=== PATIENT | male | born 1960 | race Caucasian/White ===

== ENCOUNTER 2017-04-16 19:02 | Inpatient (IN) | payer BC, OTHER ==
[~2017-04-16] VITALS: Ht 171.4 cm; Wt 80.3 kg
[2017-04-16] MEDS ORDERED: SODIUM CHLORIDE 0.9% 1000ML 1,000 ML IV STA ×3 (19:25→22:22)
[2017-04-16 19:41] LABS: HEMATOCRIT 45.4 % (42-52); HEMOGLOBIN 16.6 g/dL (14.0-18.0); MEAN CELL VOLUME 88.7 fL (80-100); MEAN CORPUSCULAR HEMOGLOBIN 32.4 pg (25-34); MEAN CORPUSCULAR HGB CONC 36.6 g/dl (32-36); MEAN PLATELET VOLUME 10.7 fL (7.4-10.4); PLATELET COUNT 127 K/uL (130-400); RED CELL DISTRIBUTION WIDTH CV 12.3 % (11.5-14.5); RED CELL DISTRIBUTION WIDTH SD 39.3 fL (36.4-46.3); WHITE BLOOD COUNT 5.94 K/uL (4.8-10.8)
[2017-04-16] MEDS ORDERED: WLLXL300 PO (19:53)
[2017-04-16] MEDS ORDERED: LEVO200T6 PO (19:53)
--- NOTE | 2017-04-16 19:55 | DIAGNOSTIC IMAGING REPORT ---
CHEST ONE VIEW PORTABLE HISTORY: 56 years-old Male hypotensive acute hypotension COMPARISON: None available TECHNIQUE: Portable AP view of the chest FINDINGS: Cardiomediastinal and hilar silhouettes are within normal limits. No pneumothorax, pleural effusion, focal airspace consolidation or overt pulmonary edema. Bones of the chest appear grossly intact. Degenerative changes of the spine and shoulders. IMPRESSION: No acute process. The above report was generated using voice recognition software. It may contain grammatical, syntax or spelling errors. Electronically signed by: Pedro Manriquez M.D. 04/16/2017 7:53 PM Dictated Date/Time: 04/16/2017 7:52 PM
[2017-04-16 20:04] LABS: BLOOD UREA NITROGEN 27 mg/dl (7-18); CREATININE 1.49 mg/dl (0.60-1.40); GLUCOSE 141 mg/dl (70-99)
[2017-04-16 20:05] LABS: ALBUMIN 3.3 gm/dl (3.4-5.0); ALT/SGPT 17 U/L (12-78); AST/SGOT 7 U/L (15-37); CALCIUM 8.6 mg/dl (8.5-10.1); CARBON DIOXIDE 25 mmol/L (21-32); POTASSIUM 4.2 mmol/L (3.5-5.1); SODIUM 130 mmol/L (136-145)
[2017-04-16 20:10] LABS: ALKALINE PHOSPHATASE 46 U/L (45-117); CKMB < 0.5 ng/ml (0.5-3.6)
[2017-04-16 20:21] LABS: BASO % 0.2 %; BASO ABS # 0.01 K/uL (0-0.2); IG# 0.02 K/uL (0.00-0.02); LYMPH % 4.7 %; LYMPH ABS # 0.28 K/uL (1.2-3.4); MONO % 5.7 %; MONO ABS # 0.34 K/uL (0.11-0.59); NEUT % 89.1 %; NEUT ABS # 5.29 K/uL (1.4-6.5)
[2017-04-16 20:33] LABS: INFLUENZA B ANTIGEN Neg for Influ B (NEG)
[2017-04-16] MEDS ORDERED: SODIUM CHLORIDE 0.9% IV STA (21:17)
[2017-04-16] MEDS ORDERED: PIPERACILLIN/TAZOBACTAM 4.5 GM/100ML D5W IV STA (21:17)
[2017-04-16] MEDS ORDERED: VANCOMYCIN IV STA (21:17)
[2017-04-16] MEDS ORDERED: VANCOMYCIN CONSULT ACTIVE PRN (21:30)
[2017-04-16] MEDS ORDERED: DOXYCYCLINE IV 100 MG in DEXTROSE 5% 100ML 100 ML IV ONE (22:20)
[2017-04-16 22:58] LABS: PTT PATIENT 27.3 SECONDS (21.0-31.0)
[2017-04-16 23:13] LABS: CALCIUM 7.8 mg/dl (8.5-10.1); CREATININE 1.26 mg/dl (0.60-1.40); POTASSIUM 4.4 mmol/L (3.5-5.1)
[2017-04-16] MEDS ORDERED: LEVALBUTEROL/IPRATROPIUM NEB INH STA (23:13)
[2017-04-16] MEDS ORDERED: ACETAMINOPHEN 325 MG TAB PO PRN (23:15)
[2017-04-16] MEDS ORDERED: TRAMADOL HCL 50 MG TAB PO PRN (23:15)
[2017-04-16] MEDS ORDERED: PROCHLORPERAZINE INJ 5 MG in SYRINGE 4 ML IV PRN (23:15)
[2017-04-16] MEDS ORDERED: LORAZEPAM 2 MG/ML 1 ML VIAL IV PRN (23:15)
[2017-04-16] MEDS ORDERED: HYDROmorphone INJ 0.5 MG/0.5 ML SYR IV PRN (23:15)
[2017-04-16] MEDS ORDERED: NITROGLYCERIN 0.4 MG SL PER TAB CHARGE SL PRN (23:15)
[2017-04-16] MEDS ORDERED: LEVALBUTEROL/IPRATROPIUM NEB INH PRN (23:15)
[2017-04-16 23:30] VITALS: BP 93/55; PULSE 110; TEMP 37.1; O2SAT 95; Ht 171.4 cm; Wt 80.3 kg
[2017-04-16] MEDS ORDERED: MoRPHine SULFATE 4 MG/ML 1 ML CARP\\VIAL IV PRN (23:30)
[2017-04-16 23:43] VITALS: BP 117/74; PULSE 104; TEMP 37.1; O2SAT 96
[2017-04-16] MEDS ORDERED: IPRATROPIUM BROMIDE NEB SOLN 0.02% 2.5 ML VIAL INH PRN (23:45)
[2017-04-16] MEDS ORDERED: CEFEPIME CONSULT ACTIVE PRN (23:45)
[2017-04-16] MEDS ORDERED: LEVALBUTEROL 1.25MG/0.5ML NEB INH PRN (23:45)
[2017-04-16] MEDS ORDERED: IPRATROPIUM BROMIDE NEB SOLN 0.02% 2.5 ML VIAL INH STA (23:58)
[2017-04-16] MEDS ORDERED: LEVALBUTEROL 1.25MG/0.5ML NEB INH STA (23:58)
[2017-04-17] VITALS (11 sets, daily range): BP systolic 85–118; BP diastolic 56–77; PULSE 74–105; TEMP 36.4–37.6; O2SAT 95–99
--- NOTE | 2017-04-17 00:04 | EMERGENCY ROOM VISIT NOTE ---
History First contact with patient: 19:16 Chief Complaint: FLU LIKE SX Stated Complaint: SEPSIS History of Present Illness The patient is a 56 year old male who presents to the Emergency Room via private vehicle accompanied by female with complaints of "sepsis". The patient states that for the past week he has had cold-like symptoms, and he feels a bubbly sensation in his lungs. He notes a history of pneumonia. He also notes a sore throat, as well as feeling stiff in his joints, and a little bit of a headache, chills, hot flashes, dizziness, weakness and nausea. He denies any sputum production or fever. He denies any chest pain, shortness of breath, vision changes, abdominal pain, diarrhea, constipation, nasal congestion. He notes that he was seen at [facility] today and sent here because of his blood pressure. Review of Systems A complete 10-point Review of Systems was discussed with the patient, with pertinent positives and negatives listed in the History of Present Illness. All remaining Review of Systems questions can be considered negative unless otherwise specified. Past Medical/Surgical History Medical Problems: (1) Sepsis Family History non contributory Social History Smoking Status: Never Smoker Pt. lives locally Current/Historical Medications Scheduled Bupropion HCl (Bupropion HCl Xl), 300 MG PO QAM Levothyroxine Sodium (Levothyroxine Sodium), 200 MCG PO QAM Physical Exam Vital Signs Date Time Temp Pulse Resp B/P (MAP) Pulse Ox O2 Delivery O2 Flow Rate FiO2 04/16/17 22:30 108 20 133/87 96 Room Air 04/16/17 21:17 106 20 110/86 96 Room Air 04/16/17 20:08 112 04/16/17 19:48 95 Room Air 04/16/17 19:11 36.7 106 18 86/57 97 Room Air Physical Exam VITAL SIGNS - Vital signs and nursing notes were reviewed. Hypotensive and tachycardic. GENERAL - 56-year-old male appearing his stated age who is in no acute distress. Communicates well with provider and answers questions appropriately. SKIN - Without rashes. HEAD - NC/AT. EYES - Sclera anicteric. EARS - No deformities of external structures noted on gross examination bilaterally. NOSE - Midline and without cyanosis. No epistaxis or purulent drainage noted. MOUTH/OROPHARYNX - Without perioral cyanosis. NECK - No nuchal rigidity. LUNGS - Chest wall symmetric without accessory muscle use, intercostals retractions, or central cyanosis. Normal vesicular breath sounds CTA B/L. No wheezes, rales, or rhonchi appreciated. CARDIAC - RRR with S1/S2. No murmur, rubs, or gallops appreciated. ABDOMEN - Abdominal contour normal without pulsations or visible masses. BS normoactive all four quadrants. No tenderness, palpable masses, hepatosplenomegaly, or ascites noted. EXTREMITIES - No clubbing or peripheral cyanosis. No pretibial edema present.+5/ 5 strength noted in UE/LE bilaterally. NEUROLOGIC - Cranial nerves II through XII grossly intact. PSYCH - A&O, and cooperates fully with examiner. Pt is very pleasant and interacts well with examiner. Medical Decision & Procedures ER Provider Diagnostic Interpretation: CHEST ONE VIEW PORTABLE HISTORY: 56 years-old Male hypotensive acute hypotension COMPARISON: None available TECHNIQUE: Portable AP view of the chest FINDINGS: Cardiomediastinal and hilar silhouettes are within normal limits. No pneumothorax, pleural effusion, focal airspace consolidation or overt pulmonary edema. Bones of the chest appear grossly intact. Degenerative changes of the spine and shoulders. IMPRESSION: No acute process. The above report was generated using voice recognition software. It may contain grammatical, syntax or spelling errors. Electronically signed by: Pedro Manriquez M.D. 04/16/2017 7:53 PM Dictated Date/Time: 04/16/2017 7:52 PM Laboratory Results 04/16/17 19:20 Red Blood Count 5.12, Mean Corpuscular Volume 88.7, Mean Corpuscular Hemoglobin 32.4, Mean Corpuscular Hemoglobin Concent 36.6, Mean Platelet Volume 10.7, Neutrophils (%) (Auto) 89.1, Lymphocytes (%) (Auto) 4.7, Monocytes (%) (Auto) 5.7, Eosinophils (%) (Auto) 0.0, Basophils (%) (Auto) 0.2, Neutrophils # (Auto) 5.29, Lymphocytes # (Auto) 0.28, Monocytes # (Auto) 0.34, Eosinophils # (Auto) 0.00, Basophils # (Auto) 0.01 04/16/17 22:35 Test 04/16/17 19:20 04/16/17 19:45 04/16/17 21:51 04/16/17 22:24 White Blood Count 5.94 K/uL (4.8-10.8) Red Blood Count 5.12 M/uL (4.7-6.1) Hemoglobin 16.6 g/dL (14.0-18.0) Hematocrit 45.4 % (42-52) Mean Corpuscular Volume 88.7 fL (80-100) Mean Corpuscular Hemoglobin 32.4 pg (25-34) Mean Corpuscular Hemoglobin Concent 36.6 g/dl (32-36) Platelet Count 127 K/uL (130-400) Mean Platelet Volume 10.7 fL (7.4-10.4) Neutrophils (%) (Auto) 89.1 % Lymphocytes (%) (Auto) 4.7 % Monocytes (%) (Auto) 5.7 % Eosinophils (%) (Auto) 0.0 % Basophils (%) (Auto) 0.2 % Neutrophils # (Auto) 5.29 K/uL (1.4-6.5) Lymphocytes # (Auto) 0.28 K/uL (1.2-3.4) Monocytes # (Auto) 0.34 K/uL (0.11-0.59) Eosinophils # (Auto) 0.00 K/uL (0-0.5) Basophils # (Auto) 0.01 K/uL (0-0.2) RDW Standard Deviation 39.3 fL (36.4-46.3) RDW Coefficient of Variation 12.3 % (11.5-14.5) Immature Granulocyte % (Auto) 0.3 % Immature Granulocyte # (Auto) 0.02 K/uL (0.00-0.02) Red Blood Cell Morphology Unremarkable Magnesium Level 2.0 mg/dl (1.8-2.4) Total Bilirubin 1.0 mg/dl (0.2-1) Aspartate Amino Transf (AST/SGOT) 7 U/L (15-37) Alanine Aminotransferase (ALT/SGPT) 17 U/L (12-78) Alkaline Phosphatase 46 U/L (45-117) Total Creatine Kinase 33 U/L (39-308) Creatine Kinase MB < 0.5 ng/ml (0.5-3.6) Creatine Kinase MB Ratio (0-3.0) Troponin I 0.036 ng/ml (0-0.045) Total Protein 7.0 gm/dl (6.4-8.2) Albumin 3.3 gm/dl (3.4-5.0) Globulin 3.7 gm/dl (2.5-4.0) Albumin/Globulin Ratio 0.9 (0.9-2) Lyme Disease IgG Antibody NEG (NEG) Lyme Disease IgM Antibody NEG (NEG) Influenza Type A Antigen Neg for Influ A (NEG) Influenza Type B Antigen Neg for Influ B (NEG) Urine Color DK YELLOW Urine Appearance CLOUDY (CLEAR) Urine pH 6.0 (4.5-7.5) Urine Specific [place] 1.034 (1.000-1.030) Urine Protein 1+ (NEG) Urine Glucose (UA) NEG (NEG) Urine Ketones 1+ (NEG) Urine Occult Blood NEG (NEG) Urine Nitrite POS (NEG) Urine Bilirubin NEG (NEG) Urine Urobilinogen NEG (NEG) Urine Leukocyte Esterase TRACE (NEG) Urine WBC (Auto) 5-10 /hpf (0-5) Urine RBC (Auto) 5-10 /hpf (0-4) Urine Hyaline Casts (Auto) 0 /lpf (0-5) Urine Epithelial Cells (Auto) >30 /lpf (0-5) Urine Bacteria (Auto) NEG (NEG) Urine Renal Epithelial Cells 0-5 /lpf (0-5) Urine Pathogenic Casts /lpf (0) Test 04/16/17 22:35 Activated Partial Thromboplast Time 27.3 SECONDS (21.0-31.0) Partial Thromboplastin Ratio 1.1 Anion Gap 10.0 mmol/L (3-11) Est Creatinine Clear Calc Drug Dose 59.8 ml/min Estimated GFR () 72.4 Estimated GFR (Non- 62.5 BUN/Creatinine Ratio 18.5 (10-20) Osmolality 284 mOsm/kg (280-300) Lactic Acid Level 3.4 mmol/L (0.4-2.0) Calcium Level 7.8 mg/dl (8.5-10.1) Procalcitonin 3.40 ng/ml (0-0.5) Thyroid Stimulating Hormone (TSH) 0.480 uIu/ml (0.300-4.500) Medications Administered Medications (Trade) Dose Ordered Sig/Deja Route Start Time Stop Time Status Last Admin Dose Admin Sodium Chloride 1,000 ml @ 999 mls/hr Q1H1M STAT IV 04/16/17 19:25 04/16/17 20:25 DC 04/16/17 19:48 999 MLS/HR Piperacillin Sod/ Tazobactam Sod (Zosyn Iv) 4.5 gm NOW STAT IV 04/16/17 21:17 04/16/17 21:19 DC 04/16/17 21:43 4.5 GM Sodium Chloride 1,000 ml @ 999 mls/hr Q1H1M STAT IV 04/16/17 21:38 04/16/17 22:38 DC 04/16/17 21:43 999 MLS/HR Doxycycline Hyclate 100 mg/ Dextrose 110 ml @ 50 mls/hr 2220 ONCE IV 04/16/17 22:20 04/17/17 00:31 04/16/17 22:45 50 MLS/HR Sodium Chloride 1,000 ml @ 500 mls/hr Q2H STAT IV 04/16/17 22:22 04/17/17 00:21 DC 04/16/17 22:56 500 MLS/HR Medical Decision Patient was seen and evaluated as above. After obtaining a thorough history and physical examination IV access was initiated, and the above workup was performed. The patient is here today over concern for sepsis. He is hypotensive, tachycardic. He was bolused with 1 L of normal saline. He is afebrile. Source at this time is unknown. Suspected sepsis. Bedside EKG was performed and reveals sinus tachycardia, rate of 113 bpm. There is potential left atrial enlargement and right bundle branch block per my interpretation. No evidence of [place] or other emergent cardiac event. Patient's lactic acid was elevated here today. He was given a second liter of fluid followed by vancomycin and Zosyn empirically. I then consulted the hospitalist. Case was discussed with the attending physician. Dr. Pham will admit the patient. The urine was still pending, but after results of it appears that he is likely septic from a complicated UTI. There is no leukocytosis or concerning anemia. Coags normal. Lactic acid initially 2.6. Sodium low at 130, creatinine 1.49. Urine does reveal positive nitrites. Flu and Lyme negative. Please refer to further documentation regarding his stay. In evaluation treatment this patient the following differential diagnoses were entertained: Sepsis, SIRS, pneumonia, UTI, among others. Impression Primary Impression: Sepsis Additional Impression: Complicated UTI (urinary tract infection) Departure Information Referrals Luther Simon D.O. (PCP) Patient Instructions [facility] Problem Qualifiers
[2017-04-17] MEDS ORDERED: GUAIFENESIN 600 MG TABCR PO ONE (00:15)
[2017-04-17] MEDS ORDERED: SODIUM CHLORIDE 0.9% 1000ML 1,000 ML IV STA (00:21)
--- NOTE | 2017-04-17 00:21 | Progress Note ---
Progress Note Post Crystalloid Evaluation Date: Apr 16, 2017 Time: 23:30 Subjective (late entry) Dry, sticky cough, sore throat Physical Exam Vital Signs: Vital Signs Date Time Temp Pulse Resp B/P (MAP) Pulse Ox O2 Delivery O2 Flow Rate FiO2 04/16/17 23:24 112 18 106/74 96 04/16/17 19:11 36.7 Lungs: + wheezing Heart: + tachycardia Peripheral Pulse: Weak Capillary Refill: Delayed (2 seconds or longer) Skin: Unremarkable Assessment & Plan Presence of: Severe Sepsis Severe sepsis SIRS plus ARF plus lactic acidosis possible sources : atypical pneumonia versus viral bronchitis Pharyngitis ? urinary tract infection (abnormal UA sans bladder symptoms) IV fluids, follow lactic acid CS, Check flu swab Strep screen IV Doxycycline for atypical pneumonia/bronchitis for now IV Cefepime for possible UTI
[2017-04-17] MEDS ORDERED: CEFEPIME IV 2,000 MG in SYRINGE 7.5 ML IV SCH (00:45)
[2017-04-17] MEDS ORDERED: OSELTAMIVIR PHOSPHATE 75 MG CAP PO STA (01:10)
[2017-04-17 01:52] LABS: INFLUENZA A PCR Neg for Influ A (NEG); INFLUENZA B PCR Neg for Influ B (NEG)
[2017-04-17] MEDS ORDERED: SODIUM CHLORIDE 0.9% 1000ML 1,000 ML IV SCH ×2 (02:00)
[2017-04-17] MEDS ORDERED: LEVALBUTEROL/IPRATROPIUM NEB INH SCH (03:00)
[2017-04-17] MEDS: LEVALBUTEROL 1.25MG/0.5ML NEB INH SCH ×4 (03:40→20:03)
[2017-04-17] MEDS: IPRATROPIUM BROMIDE NEB SOLN 0.02% 2.5 ML VIAL INH SCH ×4 (03:41→20:03)
[2017-04-17 04:00] LABS: CALCIUM 7.4 mg/dl (8.5-10.1); POTASSIUM 4.1 mmol/L (3.5-5.1)
[2017-04-17 04:32] LABS: HEMOGLOBIN 12.9 g/dL (14.0-18.0); MEAN CELL VOLUME 88.2 fL (80-100); MEAN CORPUSCULAR HEMOGLOBIN 31.6 pg (25-34); MEAN CORPUSCULAR HGB CONC 35.8 g/dl (32-36); MEAN PLATELET VOLUME 10.5 fL (7.4-10.4); RED CELL DISTRIBUTION WIDTH CV 12.2 % (11.5-14.5); RED CELL DISTRIBUTION WIDTH SD 38.9 fL (36.4-46.3); WHITE BLOOD COUNT 4.14 K/uL (4.8-10.8)
[2017-04-17 05:04] LABS: PLATELET COUNT 92 K/uL (130-400)
[2017-04-17 05:05] LABS: IG# 0.02 K/uL (0.00-0.02); LYMPH ABS # 0.29 K/uL (1.2-3.4); MONO % 9.4 %; MONO ABS # 0.39 K/uL (0.11-0.59); NEUT % 83.1 %; NEUT ABS # 3.44 K/uL (1.4-6.5)
[2017-04-17] MEDS ORDERED: SODIUM CHLORIDE 0.9% 1000ML 1,000 ML IV ONE (05:15)
[2017-04-17] MEDS ORDERED: ACETAMINOPHEN 325 MG TAB PO ONE (05:25)
[2017-04-17] MEDS: LEVOTHYROXINE 200 MCG TAB PO SCH (05:37)
[2017-04-17] MEDS ORDERED: CALCIUM GLUCONATE 10% 1,000 MG in SODIUM CHLORIDE 0.9% 50ML 50 ML IV STA (07:57)
[2017-04-17] MEDS: BuPROPion XL 300 MG TABCR PO SCH (07:57)
[2017-04-17] MEDS: GUAIFENESIN 600 MG TABCR PO SCH ×2 (07:57→20:10)
--- NOTE | 2017-04-17 08:24 | HISTORY & PHYSICAL EXAMINATION ---
DATE OF ADMISSION: 04/16/2017 PRIMARY CARE DOCTOR: Luther Simon DO CHIEF COMPLAINT: Cough, tiredness, body aches. HISTORY OF PRESENT ILLNESS: History obtained from the patient, records. Medical history is significant for GI carcinoid, pernicious anemia, hypothyroidism, sleep apnea (CPAP noncompliance). One week history of cough symptoms, unable to expectorate, generalized aches, chills, poor appetite. No chest pain, increasing shortness of breath, generalized weakness, sore throat symptoms. Denies bladder discomfort, abdominal pain, diarrhea symptoms. 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 Patient seen at [facility], noted to be febrile at 103, noted to be hypotensive. Patient directed to the ER. At the ER, patient received Zosyn, IVF for sepsis. MEDICAL HISTORY: As above. SURGERIES: He has had a hemorrhoid surgery. HOME MEDICATIONS: Include bupropion and levothyroxine. ALLERGIES: ALLERGIC TO DYE AND YELLOW JACKET. FAMILY HISTORY: Hypertension. PERSONAL AND SOCIAL HISTORY: Nonsmoker, no chronic intake of alcoholic beverages. [employer]. REVIEW OF SYSTEMS: As per HPI. All 10 systems reviewed, all others negative. PHYSICAL EXAMINATION: VITAL SIGNS: Blood pressure noted to be 86/60 later 100/70, pulse rate 106, RR 18, T 37 O2 98RA GENERAL: Noted to be uncomfortable, shivering, covered with blankets, no respiratory distress. SKIN: Normal color, warm. HEENT: [place] palpebral conjuctivae. No ptosis. Dry mucosa. NECK: Supple. No tenderness. CHEST: No chest wall tenderness; expiratory wheezes which clear on coughing. HEART: Tachycardic. No murmur. ABDOMEN: Soft, nontender. EXTREMITIES: No edema, no tenderness, no gross deformities. NEUROLOGIC: Coherent, no gross focality. LABORATORIES: Hemoglobin 16.6, white blood cell count 5.9, platelets noted to be 127. Sodium noted to be 136, potassium 4.2, CO2 25, BUN 27, creatinine 1.49, glucose was noted to be 141. Lactic acid was noted to be 2.6. Chest x-ray showed no acute process. UA, nitrite positive urine, ketones. ASSESSMENT: 1. Severe sepsis SIRS plus ARF plus lactic acidosis possible sources : atypical pneumonia versus viral bronchitis rule out flu Pharyngitis rule out strep throat ? urinary tract infection (abnormal UA sans bladder symptoms) 2. pernicious anemia as per records 3. Hypothyroidism, euthyroid 4. KAREN, CPAP intolerance 5. Thrombocytopenia, possibly from sepsis. PLAN: PCU IV fluids, follow lactic acid, renal function CS, Check flu swab. Strep screen IV Doxycycline for atypical pneumonia/bronchitis for now. nebs RTC/prn, mucolytic IV Cefepime for possible UTI DVT prophylaxis, SCDs RE thrombocytopenia. Full code. MTDD
[2017-04-17] MEDS ORDERED: FAMOTIDINE 20 MG TAB PO SCH (09:00)
--- NOTE | 2017-04-17 09:43 | Progress Note ---
Internal Med Progress Note Date of Service: Apr 17, 2017. Provider Documentation: SUBJECTIVE: Seen and examined at bedside States having a generalized rash which he developed overnight is improving Also reports multiple joint pains Cough is better Denies chest pain, SOB, dizziness No other complaints OBJECTIVE: Vital Signs-as noted below Physical Exam: Vitals signs as noted above General Appearance:Moderately built and nourished, no apparent distress Head: normocephalic, Atraumatic Eyes: normal inspection, EOMI, PERRL Neck: supple, Trachea midline Respiratory/Chest: Normal breath sounds, CTA Cardiovascular: S1, S2, No murmur, +Tachycardia Abdomen/GI:Soft, Non tender, Bowel sounds present Extremities/Musculoskelatal:normal inspection, no edema Neurologic/Psych:AAOX3, grossly no focal neurological deficits Skin: normal color, warm, Generalized rash noted Lab data as noted below. ASSESSMENT & PLAN: Severe sepsis SIRS plus ARF plus lactic acidosis Possible sources :Atypical pneumonia/viral bronchitis Was on Doxycycline and cefepime >>>Levaquin Day#1 Lactate normalized Elevated Procalcitonin Continue IV fluids Reports Blood pressure usually low at baseline Abnormal UA:? contamination. denies urinary symptoms Blood/urine cultures: pending CXR: no active process Flu negative DARA: Likely secondary to above Cr levels normalized Continue IV fluids Monitor renal function Generalized Rash: Could be secondary to antibiotics Vs Contact dermatitis Denies any allergies to Meds DC Doxy, Cefepime Benadryl PRN started on Prednisone Multiple Joint pain: Possibly reactive arthritis Patient reports similar joint pains since 2 years when acquires infection Started on prednisone monitor Hyponatremia: Likely secondary to dehydration IVF monitor H/O pernicious anemia H/O Hypothyroidism TSH normal Continue Levothyroxine KAREN CPAP intolerance Thrombocytopenia Possibly chronic worsened with Infection Monitor Depression: continue Wellbutrin DVT px: SCDs RE thrombocytopenia. Code Status: Full code Disposition: Plan to discharge home when stable Monitor in Tele Vital Signs: Date Time Temp Pulse Resp B/P (MAP) Pulse Ox O2 Delivery O2 Flow Rate FiO2 04/17/17 08:21 36.8 105 16 86/56 (66) 96 04/17/17 07:05 74 14 97 Room Air 04/17/17 04:00 Room Air 04/17/17 03:45 37.6 98 18 85/60 (68) 99 Room Air 04/17/17 03:42 103 14 96 Room Air 04/17/17 00:24 105 14 98 Room Air 04/16/17 23:30 37.1 110 18 93/55 95 Room Air 04/16/17 23:24 112 18 106/74 96 04/16/17 22:30 108 20 133/87 96 Room Air 04/16/17 21:17 106 20 110/86 96 Room Air 04/16/17 20:08 112 04/16/17 19:48 95 Room Air 04/16/17 19:11 36.7 106 18 86/57 97 Room Air Lab Results: Results Past 24 Hours Test 04/16/17 19:20 04/16/17 19:45 04/16/17 20:10 04/16/17 21:51 Range/Units White Blood Count 5.94 4.8-10.8 K/uL Red Blood Count 5.12 4.7-6.1 M/uL Hemoglobin 16.6 14.0-18.0 g/dL Hematocrit 45.4 42-52 % Mean Corpuscular Volume 88.7 80-100 fL Mean Corpuscular Hemoglobin 32.4 25-34 pg Mean Corpuscular Hemoglobin Concent 36.6 32-36 g/dl Platelet Count 127 130-400 K/uL Mean Platelet Volume 10.7 7.4-10.4 fL Neutrophils (%) (Auto) 89.1 % Lymphocytes (%) (Auto) 4.7 % Monocytes (%) (Auto) 5.7 % Eosinophils (%) (Auto) 0.0 % Basophils (%) (Auto) 0.2 % Neutrophils # (Auto) 5.29 1.4-6.5 K/uL Lymphocytes # (Auto) 0.28 1.2-3.4 K/uL Monocytes # (Auto) 0.34 0.11-0.59 K/uL Eosinophils # (Auto) 0.00 0-0.5 K/uL Basophils # (Auto) 0.01 0-0.2 K/uL RDW Standard Deviation 39.3 36.4-46.3 fL RDW Coefficient of Variation 12.3 11.5-14.5 % Immature Granulocyte % (Auto) 0.3 % Immature Granulocyte # (Auto) 0.02 0.00-0.02 K/uL Red Blood Cell Morphology Unremarkable Sodium Level 130 136-145 mmol/L Potassium Level 4.2 3.5-5.1 mmol/L Chloride Level 97 98-107 mmol/L Carbon Dioxide Level 25 21-32 mmol/L Anion Gap 8.0 3-11 mmol/L Blood Urea Nitrogen 27 7-18 mg/dl Creatinine 1.49 0.60-1.40 mg/dl Est Creatinine Clear Calc Drug Dose 50.5 ml/min Estimated GFR () 59.1 Estimated GFR (Non- 51.0 BUN/Creatinine Ratio 18.2 10-20 Random Glucose 141 70-99 mg/dl Calcium Level 8.6 8.5-10.1 mg/dl Magnesium Level 2.0 1.8-2.4 mg/dl Total Bilirubin 1.0 0.2-1 mg/dl Aspartate Amino Transf (AST/SGOT) 7 15-37 U/L Alanine Aminotransferase (ALT/SGPT) 17 12-78 U/L Alkaline Phosphatase 46 45-117 U/L Total Creatine Kinase 33 39-308 U/L Creatine Kinase MB < 0.5 0.5-3.6 ng/ml Creatine Kinase MB Ratio 0-3.0 Troponin I 0.036 0-0.045 ng/ml Total Protein 7.0 6.4-8.2 gm/dl Albumin 3.3 3.4-5.0 gm/dl Globulin 3.7 2.5-4.0 gm/dl Albumin/Globulin Ratio 0.9 0.9-2 Lyme Disease IgG Antibody NEG NEG Lyme Disease IgM Antibody NEG NEG Influenza Type A (RT-PCR) Neg for Influ A NEG Influenza Type A Antigen Neg for Influ A NEG Influenza Type B Antigen Neg for Influ B NEG Influenza Type B (RT-PCR) Neg for Influ B NEG Lactic Acid Level 2.6 0.4-2.0 mmol/L Urine Color DK YELLOW Urine Appearance CLOUDY CLEAR Urine pH 6.0 4.5-7.5 Urine Specific [place] 1.034 1.000-1.030 Urine Protein 1+ NEG Urine Glucose (UA) NEG NEG Urine Ketones 1+ NEG Urine Occult Blood NEG NEG Urine Nitrite POS NEG Urine Bilirubin NEG NEG Urine Urobilinogen NEG NEG Urine Leukocyte Esterase TRACE NEG Urine WBC (Auto) 5-10 0-5 /hpf Urine RBC (Auto) 5-10 0-4 /hpf Urine Hyaline Casts (Auto) 0 0-5 /lpf Urine Epithelial Cells (Auto) >30 0-5 /lpf Urine Bacteria (Auto) NEG NEG Urine Renal Epithelial Cells 0-5 0-5 /lpf Urine Pathogenic Casts 0 /lpf Test 04/16/17 22:35 04/17/17 03:27 Range/Units Activated Partial Thromboplast Time 27.3 21.0-31.0 SECONDS Partial Thromboplastin Ratio 1.1 Sodium Level 132 133 136-145 mmol/L Potassium Level 4.4 4.1 3.5-5.1 mmol/L Chloride Level 100 104 98-107 mmol/L Carbon Dioxide Level 23 24 21-32 mmol/L Anion Gap 10.0 5.0 3-11 mmol/L Blood Urea Nitrogen 23 19 7-18 mg/dl Creatinine 1.26 1.00 0.60-1.40 mg/dl Est Creatinine Clear Calc Drug Dose 59.8 76.6 ml/min Estimated GFR () 72.4 95.7 Estimated GFR (Non- 62.5 82.6 BUN/Creatinine Ratio 18.5 18.7 10-20 Random Glucose 156 115 70-99 mg/dl Osmolality 284 280-300 mOsm/kg Lactic Acid Level 3.4 1.9 0.4-2.0 mmol/L Calcium Level 7.8 7.4 8.5-10.1 mg/dl Procalcitonin 3.40 0-0.5 ng/ml Thyroid Stimulating Hormone (TSH) 0.480 0.300-4.500 uIu/ml White Blood Count 4.14 4.8-10.8 K/uL Red Blood Count 4.08 4.7-6.1 M/uL Hemoglobin 12.9 14.0-18.0 g/dL Hematocrit 36.0 42-52 % Mean Corpuscular Volume 88.2 80-100 fL Mean Corpuscular Hemoglobin 31.6 25-34 pg Mean Corpuscular Hemoglobin Concent 35.8 32-36 g/dl Platelet Count 92 130-400 K/uL Mean Platelet Volume 10.5 7.4-10.4 fL Neutrophils (%) (Auto) 83.1 % Lymphocytes (%) (Auto) 7.0 % Monocytes (%) (Auto) 9.4 % Eosinophils (%) (Auto) 0.0 % Basophils (%) (Auto) 0.0 % Neutrophils # (Auto) 3.44 1.4-6.5 K/uL Lymphocytes # (Auto) 0.29 1.2-3.4 K/uL Monocytes # (Auto) 0.39 0.11-0.59 K/uL Eosinophils # (Auto) 0.00 0-0.5 K/uL Basophils # (Auto) 0.00 0-0.2 K/uL RDW Standard Deviation 38.9 36.4-46.3 fL RDW Coefficient of Variation 12.2 11.5-14.5 % Immature Granulocyte % (Auto) 0.5 % Immature Granulocyte # (Auto) 0.02 0.00-0.02 K/uL Hyposegmented Neutrophils 2+ Platelet Estimate DECREASED Echinocytes 1+ Albumin 2.4 3.4-5.0 gm/dl Hepatitis C Antibody Screen NEG NEG Microbiology Results 04/16/17 Blood Culture, Received Pending 04/16/17 Blood Culture, Received Pending 04/16/17 Urine Culture, Received Pending
[2017-04-17] MEDS ORDERED: DOXYCYCLINE IV 100 MG in DEXTROSE 5% 100ML 100 ML IV SCH (10:00)
[2017-04-17] MEDS: LEVOFLOXACIN / D5W 750 MG in PREMIXED IN D5W 150 ML IV SCH (11:10)
[2017-04-17] MEDS: SODIUM CHLORIDE 0.9% 1000ML 1,000 ML IV SCH ×2 (11:10→20:11)
[2017-04-18] VITALS (9 sets, daily range): BP systolic 110–131; BP diastolic 73–84; PULSE 85–108; TEMP 36.4–37.4; O2SAT 93–98
[2017-04-18] MEDS: IPRATROPIUM BROMIDE NEB SOLN 0.02% 2.5 ML VIAL INH SCH ×4 (02:43→19:32)
[2017-04-18] MEDS: LEVALBUTEROL 1.25MG/0.5ML NEB INH SCH ×4 (02:43→19:32)
[2017-04-18] MEDS: LEVOTHYROXINE 200 MCG TAB PO SCH (06:27)
[2017-04-18 07:48] LABS: HEMATOCRIT 34.7 % (42-52); HEMOGLOBIN 12.4 g/dL (14.0-18.0); MEAN CELL VOLUME 88.5 fL (80-100); MEAN CORPUSCULAR HEMOGLOBIN 31.6 pg (25-34); MEAN CORPUSCULAR HGB CONC 35.7 g/dl (32-36); RED CELL DISTRIBUTION WIDTH CV 12.6 % (11.5-14.5); RED CELL DISTRIBUTION WIDTH SD 40.2 fL (36.4-46.3); WHITE BLOOD COUNT 2.01 K/uL (4.8-10.8)
[2017-04-18 08:00] LABS: MEAN PLATELET VOLUME 10.6 fL (7.4-10.4); PLATELET COUNT 86 K/uL (130-400)
[2017-04-18] MEDS: GUAIFENESIN 600 MG TABCR PO SCH ×2 (08:01→20:03)
[2017-04-18] MEDS: BuPROPion XL 300 MG TABCR PO SCH (08:01)
[2017-04-18] MEDS: SODIUM CHLORIDE 0.9% 1000ML 1,000 ML IV SCH (08:05)
[2017-04-18 08:27] LABS: CALCIUM 7.7 mg/dl (8.5-10.1); CREATININE 0.62 mg/dl (0.60-1.40); POTASSIUM 3.8 mmol/L (3.5-5.1)
[2017-04-18] MEDS: LEVOFLOXACIN / D5W 750 MG in PREMIXED IN D5W 150 ML IV SCH (09:55)
--- NOTE | 2017-04-18 13:39 | Progress Note ---
Internal Med Progress Note Date of Service: Apr 18, 2017. Provider Documentation: SUBJECTIVE: Seen and examined at bedside States feeling lot better today Generalized rash improved States joint pains have significantly improved Less Cough Denies chest pain, SOB, dizziness No other complaints OBJECTIVE: Vital Signs-as noted below Physical Exam: Vitals signs as noted above General Appearance:Moderately built and nourished, no apparent distress Head: normocephalic, Atraumatic Eyes: normal inspection, EOMI, PERRL Neck: supple, Trachea midline Respiratory/Chest: Normal breath sounds, CTA Cardiovascular: S1, S2, No murmur, +Tachycardia Abdomen/GI:Soft, Non tender, Bowel sounds present Extremities/Musculoskelatal:normal inspection, no edema Neurologic/Psych:AAOX3, grossly no focal neurological deficits Skin: normal color, warm, Generalized rash noted Lab data as noted below. ASSESSMENT & PLAN: Severe sepsis SIRS plus ARF plus lactic acidosis Possible sources :Atypical pneumonia/viral bronchitis Was on Doxycycline and cefepime >>>Levaquin Day # 2 Lactate normalized Elevated Procalcitonin Continue IV fluids Reports Blood pressure usually low at baseline Urine culture:No growth Blood culture: No growth to date Lyme screen: negative CXR: no active process Flu negative DARA: Likely secondary to above Resolved Monitor renal function Generalized Rash: Could be secondary to antibiotics Lyme screen negative Denies any allergies to Meds DC Doxy, Cefepime Benadryl PRN Continue Prednisone Multiple Joint pain: Possibly reactive arthritis Patient reports similar joint pains since 2 years when acquires infection continue prednisone monitor Hyponatremia: Likely secondary to dehydration Resolved monitor H/O pernicious anemia H/O Hypothyroidism TSH normal Continue Levothyroxine KAREN CPAP intolerance Thrombocytopenia Possibly chronic currently worsened with Infection Monitor Depression: continue Wellbutrin DVT px: SCDs RE thrombocytopenia. Code Status: Full code Disposition: Plan to discharge home when stable Monitor in Tele Vital Signs: Date Time Temp Pulse Resp B/P (MAP) Pulse Ox O2 Delivery O2 Flow Rate FiO2 04/18/17 12:11 36.8 98 16 110/73 (85) 95 Room Air 04/18/17 12:00 Room Air 04/18/17 08:28 36.7 108 16 117/76 (90) 94 Room Air 04/18/17 08:00 Room Air 04/18/17 06:58 101 16 93 Room Air 1/21/18 04:00 Room Air 04/18/17 03:38 37.4 99 20 119/75 (90) 97 Room Air 04/18/17 02:43 107 16 98 Room Air 04/18/17 00:00 Room Air 04/17/17 23:45 37.1 104 19 117/74 (88) 96 Room Air 04/17/17 20:03 99 16 95 Room Air 04/17/17 20:00 Room Air 04/17/17 19:48 36.7 100 20 118/77 (91) 98 Room Air 04/17/17 16:00 Room Air 04/17/17 15:40 37.2 104 20 112/76 (88) 97 Room Air 04/17/17 14:19 101 14 98 Room Air Lab Results: Results Past 24 Hours Test 04/18/17 07:34 Range/Units White Blood Count 2.01 4.8-10.8 K/uL Red Blood Count 3.92 4.7-6.1 M/uL Hemoglobin 12.4 14.0-18.0 g/dL Hematocrit 34.7 42-52 % Mean Corpuscular Volume 88.5 80-100 fL Mean Corpuscular Hemoglobin 31.6 25-34 pg Mean Corpuscular Hemoglobin Concent 35.7 32-36 g/dl RDW Standard Deviation 40.2 36.4-46.3 fL RDW Coefficient of Variation 12.6 11.5-14.5 % Platelet Count 86 130-400 K/uL Mean Platelet Volume 10.6 7.4-10.4 fL Sodium Level 136 136-145 mmol/L Potassium Level 3.8 3.5-5.1 mmol/L Chloride Level 105 98-107 mmol/L Carbon Dioxide Level 21 21-32 mmol/L Anion Gap 10.0 3-11 mmol/L Blood Urea Nitrogen 11 7-18 mg/dl Creatinine 0.62 0.60-1.40 mg/dl Est Creatinine Clear Calc Drug Dose 123.6 ml/min Estimated GFR () 126.7 Estimated GFR (Non- 109.3 BUN/Creatinine Ratio 17.7 10-20 Random Glucose 99 70-99 mg/dl Calcium Level 7.7 8.5-10.1 mg/dl Magnesium Level 2.1 1.8-2.4 mg/dl Procalcitonin 6.79 0-0.5 ng/ml
[2017-04-19] MEDS: LEValbuterol HFA 15GM INHALER INH SCH ×3 (00:14→11:30)
[2017-04-19] MEDS: IPRATROPIUM BROMIDE HFA INHALER INH SCH ×3 (00:14→11:30)
[2017-04-19 02:42] VITALS: PULSE 90; O2SAT 96
[2017-04-19 03:40] VITALS: BP 109/65; PULSE 76; TEMP 37; O2SAT 98
[2017-04-19] MEDS: LEVOTHYROXINE 200 MCG TAB PO SCH (06:25)
[2017-04-19 06:43] LABS: BASO % 0.4 %; BASO ABS # 0.01 K/uL (0-0.2); EOS % 1.1 %; EOS ABS # 0.03 K/uL (0-0.5); HEMATOCRIT 34.7 % (42-52); HEMOGLOBIN 12.3 g/dL (14.0-18.0); IG# 0.01 K/uL (0.00-0.02); LYMPH % 21.6 %; LYMPH ABS # 0.61 K/uL (1.2-3.4); MEAN CORPUSCULAR HEMOGLOBIN 31.5 pg (25-34); MEAN CORPUSCULAR HGB CONC 35.4 g/dl (32-36); MEAN PLATELET VOLUME 10.6 fL (7.4-10.4); MONO % 11.7 %; MONO ABS # 0.33 K/uL (0.11-0.59); NEUT % 64.8 %; NEUT ABS # 1.83 K/uL (1.4-6.5); PLATELET COUNT 110 K/uL (130-400); RED CELL DISTRIBUTION WIDTH CV 12.7 % (11.5-14.5); WHITE BLOOD COUNT 2.82 K/uL (4.8-10.8)
[2017-04-19 07:11] LABS: CALCIUM 7.6 mg/dl (8.5-10.1); CREATININE 0.74 mg/dl (0.60-1.40); POTASSIUM 3.3 mmol/L (3.5-5.1)
[2017-04-19 07:48] VITALS: BP 115/74; PULSE 74; TEMP 37.1; O2SAT 96
[2017-04-19] MEDS: SODIUM CHLORIDE 0.9% 1000ML 1,000 ML IV SCH (07:57)
[2017-04-19] MEDS: GUAIFENESIN 600 MG TABCR PO SCH (07:57)
[2017-04-19] MEDS: BuPROPion XL 300 MG TABCR PO SCH (07:57)
[2017-04-19] MEDS: LEVOFLOXACIN / D5W 750 MG in PREMIXED IN D5W 150 ML IV SCH (10:07)
[2017-04-19 11:24] VITALS: BP 131/86; PULSE 82; TEMP 37; O2SAT 97
[2017-04-19] MEDS ORDERED: POTASSIUM CHLORIDE 10 MEQ TABCR PO ONE (12:30)
--- NOTE | 2017-04-19 12:37 | Progress Note ---
Internal Med Progress Note Date of Service: Apr 19, 2017. Provider Documentation: SUBJECTIVE: Seen and examined at bedside Doing well Rash/Joint pain resolved Minimal Cough Denies chest pain, SOB, dizziness No other complaints OBJECTIVE: Vital Signs-as noted below Physical Exam: Vitals signs as noted above General Appearance:Moderately built and nourished, no apparent distress Head: normocephalic, Atraumatic Eyes: normal inspection, EOMI, PERRL Neck: supple, Trachea midline Respiratory/Chest: Normal breath sounds, CTA Cardiovascular: S1, S2, No murmur Abdomen/GI:Soft, Non tender, Bowel sounds present Extremities/Musculoskelatal:normal inspection, no edema Neurologic/Psych:AAOX3, grossly no focal neurological deficits Skin: normal color, warm, Generalized rash resolved Lab data as noted below. ASSESSMENT & PLAN: Severe sepsis SIRS plus ARF plus lactic acidosis Possible sources :Atypical pneumonia/viral bronchitis Was on Doxycycline and cefepime >>>Levaquin Day # 3 Lactate normalized Elevated Procalcitonin DC IV fluids Reports Blood pressure usually low at baseline Urine culture:No growth Blood culture: No growth to date Lyme screen: negative, western blot pending CXR: no active process Flu negative DARA: Likely secondary to above Resolved Monitor renal function Generalized Rash: Could be secondary to antibiotics Lyme screen negative Denies any allergies to Meds DC Doxy, Cefepime Benadryl PRN Continue Prednisone Multiple Joint pain: Possibly reactive arthritis Patient reports similar joint pains since 2 years when acquires infection continue prednisone monitor Hyponatremia: Likely secondary to dehydration Resolved monitor H/O pernicious anemia H/O Hypothyroidism TSH normal Continue Levothyroxine KAREN CPAP intolerance Thrombocytopenia Possibly chronic currently worsened with Infection Platelets trending up again Monitor Depression: continue Wellbutrin DVT px: SCDs RE thrombocytopenia. Code Status: Full code Disposition: Plan to discharge home today Follow up with your Primary Care Physician on 04/22/17 at 10:00am Complete the antibiotic and prednisone course as prescribed Seek immediate medical attention if your symptoms reoccur or worsen Consider following up with your Data Analyst Report Writer as outpatient if your joint pain reoccurs. Vital Signs: Date Time Temp Pulse Resp B/P (MAP) Pulse Ox O2 Delivery O2 Flow Rate FiO2 04/19/17 11:24 37.0 82 18 131/86 (101) 97 Room Air 04/19/17 08:00 Room Air 04/19/17 07:48 37.1 74 17 115/74 (88) 96 Room Air 04/19/17 04:18 Room Air 04/19/17 03:40 37.0 76 18 109/65 (80) 98 Room Air 04/19/17 02:42 90 16 96 Room Air 04/19/17 00:27 Room Air 04/18/17 23:45 37.1 85 17 119/82 (94) 96 Room Air 04/18/17 20:36 Room Air 04/18/17 19:33 36.4 94 20 131/84 (100) 94 Room Air 04/18/17 15:41 36.8 91 18 115/75 (88) 94 Room Air 04/18/17 15:37 Room Air 04/18/17 14:28 85 16 97 Room Air Lab Results: Results Past 24 Hours Test 04/18/17 13:50 04/19/17 06:31 Range/Units White Blood Count 2.82 4.8-10.8 K/uL Red Blood Count 3.90 4.7-6.1 M/uL Hemoglobin 12.3 14.0-18.0 g/dL Hematocrit 34.7 42-52 % Mean Corpuscular Volume 89.0 80-100 fL Mean Corpuscular Hemoglobin 31.5 25-34 pg Mean Corpuscular Hemoglobin Concent 35.4 32-36 g/dl Platelet Count 110 130-400 K/uL Mean Platelet Volume 10.6 7.4-10.4 fL Neutrophils (%) (Auto) 64.8 % Lymphocytes (%) (Auto) 21.6 % Monocytes (%) (Auto) 11.7 % Eosinophils (%) (Auto) 1.1 % Basophils (%) (Auto) 0.4 % Neutrophils # (Auto) 1.83 1.4-6.5 K/uL Lymphocytes # (Auto) 0.61 1.2-3.4 K/uL Monocytes # (Auto) 0.33 0.11-0.59 K/uL Eosinophils # (Auto) 0.03 0-0.5 K/uL Basophils # (Auto) 0.01 0-0.2 K/uL RDW Standard Deviation 41.0 36.4-46.3 fL RDW Coefficient of Variation 12.7 11.5-14.5 % Immature Granulocyte % (Auto) 0.4 % Immature Granulocyte # (Auto) 0.01 0.00-0.02 K/uL Sodium Level 138 136-145 mmol/L Potassium Level 3.3 3.5-5.1 mmol/L Chloride Level 106 98-107 mmol/L Carbon Dioxide Level 27 21-32 mmol/L Anion Gap 5.0 3-11 mmol/L Blood Urea Nitrogen 11 7-18 mg/dl Creatinine 0.74 0.60-1.40 mg/dl Est Creatinine Clear Calc Drug Dose 103.6 ml/min Estimated GFR () 117.8 Estimated GFR (Non- 101.7 BUN/Creatinine Ratio 14.4 10-20 Random Glucose 89 70-99 mg/dl Calcium Level 7.6 8.5-10.1 mg/dl Magnesium Level 2.2 1.8-2.4 mg/dl
[2017-04-19 12:39] VITALS: BP 131/86
[2017-04-19] MEDS ORDERED: LEVO1TAB35 PO (12:40)
[2017-04-19] MEDS ORDERED: PRD5 PO (12:40)
--- NOTE | 2017-04-19 12:44 | Discharge Summary ---
Discharge Summary Date of Service Apr 19, 2017. Discharge Summary Admission Date: Apr 16, 2017 at 22:43 Discharge Date: Apr 19, 2017 Discharge Disposition: Home Principal Diagnosis: Sepsis Procedures: CXR: No acute process. Consultations: None Pending Studies/Follow-Up: Follow up with your Primary Care Physician on 04/22/17 at 10:00am Complete the antibiotic and prednisone course as prescribed Seek immediate medical attention if your symptoms reoccur or worsen Consider following up with your Project Architect as outpatient if your joint pain reoccurs. Medication Reconciliation New Medications: Levofloxacin (Levaquin) 750 Mg Tab 750 MG PO DAILY for 5 Days, #5 TAB Prednisone (Prednisone) 5 Mg Tab 5 MG PO DAILY for 5 Days, #5 TAB Continued Medications: Bupropion HCl (Bupropion HCl Xl) 300 Mg Tabcr 300 MG PO QAM Levothyroxine Sodium (Levothyroxine Sodium) 200 Mcg Tab 200 MCG PO QAM for 90 Days, #90 TAB 3 Refills Admission Information HPI (per Admitting provider): CHIEF COMPLAINT: Cough, tiredness, body aches. HISTORY OF PRESENT ILLNESS: History obtained from the patient, records. Medical history is significant for GI carcinoid, pernicious anemia, hypothyroidism, sleep apnea (CPAP noncompliance). One week history of cough symptoms, unable to expectorate, generalized aches, chills, poor appetite. No chest pain, increasing shortness of breath, generalized weakness, sore throat symptoms. Denies bladder discomfort, abdominal pain, diarrhea symptoms. 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 Patient seen at [facility], noted to be febrile at 103, noted to be hypotensive. Patient directed to the ER. At the ER, patient received Zosyn, IVF for sepsis. Physical Exam (per Admitting): PHYSICAL EXAMINATION: VITAL SIGNS: Blood pressure noted to be 86/60 later 100/70, pulse rate 106, RR 18, T 37 O2 98RA GENERAL: Noted to be uncomfortable, shivering, covered with blankets, no respiratory distress. SKIN: Normal color, warm. HEENT: [place] palpebral conjuctivae. No ptosis. Dry mucosa. NECK: Supple. No tenderness. CHEST: No chest wall tenderness; expiratory wheezes which clear on coughing. HEART: Tachycardic. No murmur. ABDOMEN: Soft, nontender. EXTREMITIES: No edema, no tenderness, no gross deformities. NEUROLOGIC: Coherent, no gross focality. Hospital Course Severe sepsis SIRS plus ARF plus lactic acidosis Possible sources :Atypical pneumonia/viral bronchitis Was on Doxycycline and cefepime >>>Levaquin Day # 3 Lactate normalized Elevated Procalcitonin DC IV fluids Reports Blood pressure usually low at baseline Urine culture:No growth Blood culture: No growth to date Lyme screen: negative, western blot pending CXR: no active process Flu negative DARA: Likely secondary to above Resolved Monitor renal function Generalized Rash: Could be secondary to antibiotics Lyme screen negative Denies any allergies to Meds DC Doxy, Cefepime Benadryl PRN Continue Prednisone Multiple Joint pain: Possibly reactive arthritis Patient reports similar joint pains since 2 years when acquires infection continue prednisone monitor Hyponatremia: Likely secondary to dehydration Resolved monitor H/O pernicious anemia H/O Hypothyroidism TSH normal Continue Levothyroxine KAREN CPAP intolerance Thrombocytopenia Possibly chronic currently worsened with Infection Platelets trending up again Monitor Depression: continue Wellbutrin DVT px: SCDs RE thrombocytopenia. Code Status: Full code Disposition: Plan to discharge home today Follow up with your Primary Care Physician on 04/22/17 at 10:00am Complete the antibiotic and prednisone course as prescribed Seek immediate medical attention if your symptoms reoccur or worsen Consider following up with your Project Architect as outpatient if your joint pain reoccurs. Total time spent on discharge = 35 minutes This includes examination of the patient, discharge planning, medication reconciliation, and communication with other providers. Discharge Instructions Discharge Instructions Date of Service Apr 19, 2017. Admission Reason for Admission: Sepsis Discharge Discharge Diagnosis / Problem: Sepsis Discharge Goals Goal(s): Decrease discomfort, Improve function Activity Recommendations Activity Limitations: resume your previous activity Exercise/Sports Limitations: as tolerated . Instructions / Follow-Up Instructions / Follow-Up Follow up with your Primary Care Physician on 04/22/17 at 10:00am Complete the antibiotic and prednisone course as prescribed Seek immediate medical attention if your symptoms reoccur or worsen Consider following up with your Project Architect as outpatient if your joint pain reoccurs. Current Hospital Diet Patient's current hospital diet: Regular Diet Discharge Diet Recommended Diet: Regular Diet Pending Studies Studies pending at discharge: yes List of pending studies: Lyme [place] Medical Emergencies . Who to Call and When: Medical Emergencies: If at any time you feel your situation is an emergency, please call 911 immediately. . Non-Emergent Contact Non-Emergency issues call your: Primary Care Provider Call Non-Emergent contact if: you have a fever, your pain is not controlled, your pain is worsening, your pain is unusual for you, your pain is concerning you, you have any medication questions Seek immediate medical attention if your symptoms reoccur or worsen . . "Provider Documentation" section prepared by Antonio Gonzalez. . VTE Core Measure Inpt VTE Proph given/why not?: SCD's
[2017-04-19 12:49] VITALS: BP 131/86; PULSE 82; TEMP 37; O2SAT 97
== END 2017-04-19 13:50 | disposition home or self-care (01) | DRG 871 ==
LOC: C.EDB 19:03 → C.2T 22:43 → ENRESERV 22:58
PROVIDERS: ADMIT Internal Medicine; ATTEND Internal Medicine
DX: A41.9 Sepsis, unspecified organism (principal); J18.9 Pneumonia, unspecified organism; J20.8 Acute bronchitis due to other specified organisms; R65.20 Severe sepsis without septic shock; N17.9 Acute kidney failure, unspecified; E87.1 Hypo-osmolality and hyponatremia; M02.39 Reiter's disease, multiple sites; L27.0 Generalized skin eruption due to drugs and medicaments taken internally; T36.95XA Adverse effect of unspecified systemic antibiotic, initial encounter; E03.9 Hypothyroidism, unspecified; G47.33 Obstructive sleep apnea (adult) (pediatric); F32.9 Major depressive disorder, single episode, unspecified; D69.6 Thrombocytopenia, unspecified; Z79.899 Other long term (current) drug therapy; Z82.49 Family history of ischemic heart disease and other diseases of the circulatory system